=== PATIENT | female | born 2000 | race Caucasian/White ===

== ENCOUNTER 2021-02-12 08:07 | Inpatient (IN) ==
[2021-02-12] MEDS ORDERED: OXYTOCIN 30 UNITS/500 ML BAG IV PRN ×3 (08:32→18:47)
[2021-02-12] MEDS ORDERED: DINOPROSTONE 10 MG INSERT PV ONE (08:32)
--- NOTE | 2021-02-12 09:01 | History & Physical Report ---
Date of Service February 12, 2021 Assessment & Plan (1) Post-term , 40-42 weeks of gestation: Plan: 20-year-old -0-0-1 at 41 weeks and 4 days of gestation presenting today for induction of labor for postdates, Vital signs stable afebrile, heart rate reassuring, GBS negative, Cervix is favorable, Plan to admit, monitor, labs, IV fluids, oxytocin per protocol and AROM when able. Patient agrees with plan and all questions were answered. Admission and Anticipated Discharge Date Admission Date: February 12, 2021 History of Present Illness Primary Care Provider: NO PCP Patient is a 20-year-old -0-0-1 at 41 weeks and 4 days of gestation who presented today for induction of labor due to postdates. She [place] care at [place] state and moved here about a month ago. She has not had any care for the last month or so. She has mild irregular contractions, no leakage of fluid or vaginal bleeding. She reports good movements. Her has been uncomplicated for her. She denies any medical problems other than anemia, she has been on iron. She denies smoking, alcohol or drug use. Per her records UDS screen was positive for marijuana and smoking history was noted. GBS is negative. Allergies Allergy/AdvReac Type Severity Reaction Status Date / Time No Known Allergies Allergy Unverified 06/08/19 20:16 Home Medications Medication Instructions Recorded Confirmed Type ferrous sulfate 325 mg (65 mg 325 mg PO DAILY 02/11/21 02/12/21 History iron) tablet (Iron (ferrous sulfate)) vit no.95-ferrous 1 tab PO DAILY 02/11/21 02/12/21 History fumarate 28 mg-folic acid 800 mcg tablet () acetaminophen 325 mg tablet 650 mg PO QID PRN 02/12/21 02/12/21 History (Tylenol) Patient History Medical History (Updated 02/12/21 @ 08:59 by Andres Wise MD) Anemia only with Migraines no meds No pertinent past medical history (spontaneous vaginal delivery) 2016 in [place] Surgical History H/O wisdom tooth extraction Social History (Updated 02/12/21 @ 08:22 by uPrnima Boone RN) Smoking Status: Never smoker Hx Alcohol Use: No Hx Substance Use: No Preferred Language: [place] Beliefs That Will Affect Care: None marital status: marital status details: Been seperated since May 2020; FOB unknown Current Living Situation: Family Current Living Situation Comment: Live with parents, siblings and daughter current occupational status: unemployed Feels Safe at Home: Yes Safety Concerns: Feels Safe At This Time OB History Full-term in 2017, uncomplicated [employer] History No history of STDs, no history of genital herpes, chlamydia, gonorrhea Physical Exam Constitutional: well developed and well nourished Not in acute distress. Gastrointestinal (Abdomen): Inspection/Auscultation: abdomen normal to inspection and + abdomen distended (Gravid, nontender) Genitourinary: normal external appearance OB Exam Abdomen: + vertex (Confirmed with bedside ultrasound) Manual OB Exam: + cervical dilation 3 cm, + cervical effacement 50% and + station -2 OB Exam Monitor Tracing: + external uterine monitor used (Contractions every 45 minutes) and + category I Results & Data ([facility] [place]) Vital Signs (Past 12 Hours) Vital Signs Temp Pulse Resp BP 02/12/21 08:14 36.9 C 18 02/12/21 08:12 101 H 112/60
[2021-02-12 09:11] LABS: Hematocrit (blood only) 34.8 % (37-47); Hemoglobin 11.4 g/dL (12.0-16.0); Mean Corpuscular Hemoglobin 28.6 pg (25-34); Mean Corpuscular Hgb Conc 32.8 g/dL (32-36); Mean Corpuscular Volume 87.4 fL (80-100); Platelet Count 267 K/uL (130-400); RDW Coefficient of Variation 15.9 % (11.5-14.5); Red Blood Count 3.98 M/uL (4.2-5.4); White Blood Count 13.89 K/uL (4.8-10.8)
[2021-02-12] MEDS: LACTATED RINGER'S 1,000 ML IV PRN ×3 (09:24→15:23)
[2021-02-12 09:29] LABS: Amphetamines+Metham, Urine Neg (Neg); Barbiturates, Urine Neg (Neg); Benzodiazepine, Urine Neg (Neg); Cocaine, Urine Neg (Neg); MDMA (Ecstacy), Urine Neg (Neg); Methadone, Urine Neg (Neg); Opiate, Urine Neg (Neg); Phencyclidine, Urine Neg (Neg)
[2021-02-12] MEDS ORDERED: SODIUM CHLORIDE 0.9% INJ 10 ML VIAL ONE (14:24)
[2021-02-12] MEDS ORDERED: fentaNYL citrate 100 MCG/2 ML VIAL ONE (14:24)
[2021-02-12] MEDS ORDERED: ePHEDrine sulfate 50 MG/ML AMP ONE (14:24)
[2021-02-12] MEDS ORDERED: BUPIVACAINE 0.25% 30 ML VIAL ONE (14:24)
[2021-02-12] MEDS ORDERED: fentaNYL 2MCG/ML ROPIVACAINE 1.25MG/ML 100 ML BAG EPI ONE (14:25)
[2021-02-12] MEDS ORDERED: diphenhydrAMINE 50 MG/ML VIAL IV PRN (14:31)
[2021-02-12] MEDS ORDERED: NALOXONE HCL 0.4 MG/1 ML VIAL/CARP IV PRN (14:31)
[2021-02-12] MEDS ORDERED: ONDANSETRON INJ 2 MG/ML 2 ML VIAL IV PRN (14:31)
[2021-02-12] MEDS ORDERED: fentaNYL 2MCG/ML ROPIVACAINE 1.25MG/ML 100 ML BAG EPI PRN (14:31)
[2021-02-12] MEDS ORDERED: NALBUPHINE HCL INJ 10 MG/ML AMP IV PRN (14:31)
[2021-02-12] MEDS ORDERED: NALOXONE HCL 1 MG in SODIUM CHLORIDE 0.9% 1000ML 1,000 ML IV PRN (14:31)
[2021-02-12] MEDS ORDERED: ePHEDrine sulfate 50 MG/ML AMP IV PRN (14:31)
--- NOTE | 2021-02-12 14:33 | Anesthesiology Consultation ---
Date of Service February 12, 2021 Assessment & Plan (1) Encounter for pre-operative examination: Chart Review Chart Review: Patient NOT seen in Pre Admission Testing and Acceptable Risk for Labor Epidural Consults Requested none History Height/Weight Height: 5 ft 2 in Weight: 92.079 kg Allergies Allergy/AdvReac Type Severity Reaction Status Date / Time No Known Allergies Allergy Unverified 06/08/19 20:16 Medications Home Medications Medication Instructions Recorded Confirmed Last Taken ferrous sulfate 325 mg (65 mg 325 mg PO DAILY 02/11/21 02/12/21 02/11/21 09:00 iron) tablet (Iron (ferrous sulfate)) vit no.95-ferrous 1 tab PO DAILY 02/11/21 02/12/21 02/10/21 21:00 fumarate 28 mg-folic acid 800 mcg tablet () acetaminophen 325 mg tablet 650 mg PO QID PRN 02/12/21 02/12/21 Unknown (Tylenol) Active Medications Generic Name Dose Route Start Last Admin Trade Name Freq PRN Reason Stop Dose Admin Lactated Ringer's 1,000 mls @ 150 mls/hr 02/12/21 08:32 02/12/21 14:22 Lr IV 02/14/21 08:31 999 mls/hr .Q6H40M PRN Administration L&D Protocol Protocol Oxytocin 30 units in 500 mls @ 12 mls/hr 02/12/21 08:54 02/12/21 14:07 Pitocin IV 02/14/21 08:53 0.72 units/hr .Q24H PRN 12 mls/hr Labor Induction/Augmentation Titration Protocol 0.72 UNITS/HR Past Medical History Medical History Anemia only with Migraines no meds No pertinent past medical history (spontaneous vaginal delivery) 2017 in [place] Exercise / Class Metabolic Activity II 4-5 Yardwork/Stairs/Walk up hill Past Surgical History Surgical History H/O wisdom tooth extraction Past Anesthesia History No Hx of Anesthesia Complications and No Family Hx of Anesthesia Complications History of PONV No Hx of PONV and No Hx of Motion Sickness Social History Smoking Status: Never smoker Hx Alcohol Use: No Hx Substance Use: No Physical Exam Vital Signs Last Vital Signs Temp 36.8 C 02/12/21 11:00 Pulse 77 02/12/21 14:43 Resp 18 02/12/21 11:00 BP 109/71 02/12/21 14:23 Pulse Ox 99 02/12/21 14:43 Testing Laboratory Results 02/12/21 08:53
--- NOTE | 2021-02-12 16:14 | Obstetrical Progress Note ---
Date of Service February 12, 2021 Assessment & Plan Admission and Anticipated Discharge Date Admission Date: February 12, 2021 Subjective Patient is reevaluated. She has been on Pitocin since this morning and got p ainful around 2:30 PM and received epidural for pain. She is comfortable now with no complaints. Vital signs stable afebrile, heart rate reassuring, Vaginal exam, cervix is 5 cm dilated, 90% effaced, bulging bag, AROM and, clear fluid was obtained, head is at -2 station but engaged. [place] contractions every 2 to 3 minutes, Pitocin is at 12 mIU/min. Continue to monitor closely, Anticipate . Results & Data ([facility]) Vital Signs (Past 12 Hours) Vital Signs Temp Pulse Resp BP Pulse Ox 02/12/21 16:08 88 103/58 L 97 02/12/21 16:06 86 107/52 L 02/12/21 16:03 90 96 02/12/21 15:58 82 97/53 L 96 02/12/21 15:53 78 96 02/12/21 15:52 77 94/55 L 02/12/21 15:51 75 103/60 02/12/21 15:48 81 97 02/12/21 15:43 81 99/58 L 96 02/12/21 15:38 88 96 02/12/21 15:37 80 94/55 L 93 02/12/21 15:34 78 104/61 02/12/21 15:33 83 99 02/12/21 15:29 83 108/67 02/12/21 15:28 83 98 02/12/21 15:24 83 108/67 02/12/21 15:23 84 97 02/12/21 15:18 90 99 02/12/21 15:16 85 107/66 02/12/21 15:14 77 106/67 02/12/21 15:13 83 98 02/12/21 15:12 82 106/67 02/12/21 15:10 80 104/65 02/12/21 15:08 84 106/67 98 02/12/21 15:06 90 99/62 L 02/12/21 15:04 81 99/63 L 02/12/21 15:03 82 97 02/12/21 15:02 36.6 C 86 18 106/67 02/12/21 15:00 85 111/70 02/12/21 14:58 83 107/67 98 02/12/21 14:56 83 99/66 L 02/12/21 14:54 85 100/66 02/12/21 14:53 94 H 98 02/12/21 14:52 79 95/58 L 02/12/21 14:50 83 95/59 L 02/12/21 14:48 83 99/54 L 100 02/12/21 14:43 77 99 02/12/21 14:38 84 100 02/12/21 14:33 82 98 02/12/21 14:23 87 109/71 02/12/21 13:24 87 107/70 02/12/21 12:24 95 H 106/59 L 02/12/21 11:23 97 H 103/64 02/12/21 11:00 36.8 C 02/12/21 10:19 94 H 119/72 02/12/21 08:14 36.9 C 18 02/12/21 08:12 101 H 112/60
--- NOTE | 2021-02-12 17:26 | Obstetrical Progress Note ---
Date of Service February 12, 2021 Assessment & Plan Admission and Anticipated Discharge Date Admission Date: February 12, 2021 Subjective heart rate had early decelerations with contractions and minimal variab ility, vaginal exam is repeated, cervix is 6 cm dilated, 80% effaced head at 0 station and ROP, sagittal suture is transverse. heart rate had increased variability and acceleration after vaginal exam. Continue to monitor closely at right lateral position for internal rotation of head. Results & Data ([facility]) Vital Signs (Past 12 Hours) Vital Signs Temp Pulse Resp BP Pulse Ox 02/12/21 17:20 88 95/50 L 02/12/21 17:18 89 97 02/12/21 17:13 83 97 02/12/21 17:08 87 96 02/12/21 17:03 84 94/51 L 97 02/12/21 16:58 83 98 02/12/21 16:53 82 97 02/12/21 16:48 85 99/58 L 97 02/12/21 16:47 82 89/51 L 02/12/21 16:44 80 80/45 L 02/12/21 16:43 80 97 02/12/21 16:38 84 93/53 L 97 02/12/21 16:33 81 96 02/12/21 16:32 85 86/51 L 02/12/21 16:29 81 88/53 L 02/12/21 16:28 79 96 02/12/21 16:23 82 97 02/12/21 16:22 82 100/59 L 02/12/21 16:19 85 95/51 L 02/12/21 16:18 83 98 02/12/21 16:15 18 02/12/21 16:14 86 91/55 L 02/12/21 16:13 85 102/62 97 02/12/21 16:08 88 103/58 L 97 02/12/21 16:06 86 107/52 L 02/12/21 16:03 90 96 02/12/21 16:00 20 02/12/21 15:58 82 97/53 L 96 02/12/21 15:53 78 96 02/12/21 15:52 77 94/55 L 02/12/21 15:51 75 103/60 02/12/21 15:48 81 97 02/12/21 15:45 20 02/12/21 15:43 81 99/58 L 96 02/12/21 15:38 88 96 02/12/21 15:37 80 94/55 L 93 02/12/21 15:34 78 104/61 02/12/21 15:33 83 99 02/12/21 15:30 20 02/12/21 15:29 83 108/67 02/12/21 15:28 83 98 02/12/21 15:24 83 108/67 02/12/21 15:23 84 97 02/12/21 15:18 90 99 02/12/21 15:16 85 107/66 02/12/21 15:15 18 02/12/21 15:14 77 106/67 02/12/21 15:13 83 98 02/12/21 15:12 82 106/67 02/12/21 15:10 80 104/65 02/12/21 15:08 84 106/67 98 02/12/21 15:06 90 99/62 L 02/12/21 15:04 81 99/63 L 02/12/21 15:03 82 97 02/12/21 15:02 36.6 C 86 18 106/67 02/12/21 15:00 85 111/70 02/12/21 14:58 83 107/67 98 02/12/21 14:56 83 99/66 L 02/12/21 14:54 85 100/66 02/12/21 14:53 94 H 98 02/12/21 14:52 79 95/58 L 02/12/21 14:50 83 95/59 L 02/12/21 14:48 83 99/54 L 100 02/12/21 14:43 77 99 02/12/21 14:38 84 100 02/12/21 14:33 82 98 02/12/21 14:23 87 109/71 02/12/21 13:24 87 107/70 02/12/21 12:24 95 H 106/59 L 02/12/21 11:23 97 H 103/64 02/12/21 11:00 36.8 C 18 02/12/21 10:19 94 H 119/72 02/12/21 08:14 36.9 C 18 02/12/21 08:12 101 H 112/60
[2021-02-12] MEDS ORDERED: MINERAL OIL 30 ML UDC ONE (18:18)
[2021-02-12] MEDS ORDERED: bisacodyL 10 MG SUPP PR PRN (18:47)
[2021-02-12] MEDS ORDERED: BENZOCAINE 20% AER SPR 82.5 GM CAN EXT PRN (18:47)
[2021-02-12] MEDS ORDERED: SUPERCREAM 0.870% 15 GM JAR EXT PRN (18:47)
[2021-02-12] MEDS ORDERED: ACETAMINOPHEN 325 MG TAB PO PRN (18:47)
[2021-02-12] MEDS ORDERED: HYDROCORTISONE ACETATE 25 MG SUPP PR PRN (18:47)
[2021-02-12] MEDS ORDERED: miSOPROStoL 200 MCG TAB PR ONE (18:47)
--- NOTE | 2021-02-12 19:37 | Delivery Summary ---
DATE OF DELIVERY: 02/12/2021 DETAILS OF DELIVERY: The patient was found to be fully dilated and desired to push. She pushed through 3 contractions and delivered the head without difficulty. Shoulders were delivered with minimal traction. Baby was handed off to the mother where mouth and nose were suctioned. Cord was clamped x2 and cut at 1 minute delay. Cord blood was obtained. Baby was vigorously crying and moving at that point. Vagina and perineum were checked for lacerations that were intact. No lacerations were found. Placenta was found to be in the vagina, delivered spontaneously as intact and complete. Uterus was explored and found to be empty. Lower segment was cleared of all clots and debris. Fundus was firm. EBL was 200 mL. Mom and baby tolerated the procedure well. lap and instrument count was correct x2. Baby was a viable male , Apgars 9/9, weight is 3743 gr. No complications happened and I was present during whole procedure. Job ID: [id number] [facility]
--- NOTE | 2021-02-12 19:50 | Anesthesia Procedure Note ---
Date of Service February 12, 2021 Anesthesia Post Epidural Note Vital Signs Vital Signs: Temp Pulse Resp BP Pulse Ox 37.1 C 87 22 105/54 L 97 02/12/21 17:00 02/12/21 19:33 02/12/21 18:30 02/12/21 19:49 02/12/21 18:48 Pain Intensity Bilateral Abdomen: Pain Intensity: 8 Notes Mental Status: alert / awake / arousable and participated in evaluation Patient Amnestic to Procedure: No Nausea / Vomiting: adequately controlled Pain: adequately controlled Airway Patency, RR, SpO2: stable & adequate BP & HR: stable & adequate Hydration State: stable & adequate Neuraxial Anesthesia: was administered and sensory block is resolving Anesthetic Complications: no major complications apparent and Pt Satisfied with anesthetic care Epidural: Removed without complications and With tip intact
[2021-02-12] MEDS: IBUPROFEN 600 MG TAB PO PRN (20:31)
[2021-02-12] MEDS: DOCUSATE SODIUM 100 MG CAP PO SCH (21:28)
[2021-02-13 07:05] LABS: Hematocrit (blood only) 31.4 % (37-47); Hemoglobin 10.3 g/dL (12.0-16.0); Mean Corpuscular Hemoglobin 28.7 pg (25-34); Mean Corpuscular Hgb Conc 32.8 g/dL (32-36); Mean Corpuscular Volume 87.5 fL (80-100); Platelet Count 231 K/uL (130-400); RDW Coefficient of Variation 15.6 % (11.5-14.5); RDW Standard Deviation 50.4 fL (36.4-46.3); Red Blood Count 3.59 M/uL (4.2-5.4); White Blood Count 15.36 K/uL (4.8-10.8)
[2021-02-13] MEDS: PRENATAL VITAMIN 1 TAB PO SCH (08:03)
[2021-02-13] MEDS: FERROUS SULFATE 325 MG TAB PO SCH (08:03)
[2021-02-13] MEDS: IBUPROFEN 600 MG TAB PO PRN ×3 (08:03→21:58)
--- NOTE | 2021-02-13 08:14 | Obstetrical Progress Note ---
Date of Service February 13, 2021 Subjective Ambulation: ambulating normally Voiding: no voiding problems Passing Gas:: Yes Diet Tolerance:: regular diet Feeding Type:: breast feeding Current Pain Level(1-10): 0 doing well Physical Exam Constitutional WD/WN, vitals as above comfortable Abdomen soft and non-tender no edema neg James's tent d/c in AM Results & Data ([facility]) Vital Signs (Past 12 Hours) Vital Signs Temp Pulse Pulse Resp BP BP 02/13/21 03:25 36.9 C 18 106/75 02/12/21 22:45 36.9 C 93 H 18 104/73 02/12/21 21:48 100 H 105/64 02/12/21 21:33 88 103/59 L 02/12/21 21:18 93 H 98/54 L 02/12/21 21:03 37.1 C 97 H 18 100/57 L 02/12/21 20:48 96 H 103/60 02/12/21 20:33 101 H 113/69 02/12/21 20:18 85 106/62 Laboratory Results Laboratory Results - last 72 hr 02/12/21 02/12/21 02/12/21 08:53 08:56 09:14 WBC 13.89 H RBC 3.98 L Hgb 11.4 L Hct 34.8 L MCV 87.4 MCH 28.6 MCHC 32.8 RDW Std Deviation 51.0 H RDW Coeff of Abiodun 15.9 H Plt Count 267 MPV 9.0 Urine Opiates Screen Neg Ur Methadone, Qual Neg Urine Barbiturates Neg Ur Phencyclidine (PCP) Neg U Amphetamin/Meth Scrn Neg MDMA (Ecstasy) Screen Neg U Benzodiazepines Scrn Neg Ur Cocaine Metabolite Neg U Marijuana (THC) Screen Neg COVID-19 Eval Order Covid19 [facility] SARS-CoV-2, RNA, NAAT 02/12/21 02/13/21 09:14 06:35 WBC 15.36 H RBC 3.59 L Hgb 10.3 L Hct 31.4 L MCV 87.5 MCH 28.7 MCHC 32.8 RDW Std Deviation 50.4 H RDW Coeff of Abiodun 15.6 H Plt Count 231 MPV 9.0 Urine Opiates Screen Ur Methadone, Qual Urine Barbiturates Ur Phencyclidine (PCP) U Amphetamin/Meth Scrn MDMA (Ecstasy) Screen U Benzodiazepines Scrn Ur Cocaine Metabolite U Marijuana (THC) Screen COVID-19 Eval Order SARS-CoV-2, RNA, NAAT NEGATIVE
[2021-02-13] MEDS ORDERED: MEASLES, MUMPS & RUBELLA VIRUS VIAL SQ ONE (09:00)
[2021-02-13] MEDS ORDERED: DIPHTHERIA/TETANUS/PERTUSSIS 0.5 ML SYR/VIAL IM ONE (09:00)
[2021-02-13] MEDS ORDERED: bisacodyL 5 MG TABEC PO SCH (20:00)
[2021-02-13] MEDS: DOCUSATE SODIUM 100 MG CAP PO SCH (20:16)
[2021-02-14 06:54] LABS: Hematocrit (blood only) 31.4 % (37-47)
--- NOTE | 2021-02-14 07:14 | Obstetrical Progress Note ---
Date of Service February 14, 2021 Assessment & Plan Admission and Anticipated Discharge Date Admission Date: February 12, 2021 Subjective Patient is seen and examined. She feels well, no complaints. Ambulating without dizziness Voiding without difficulty Tolerating regular diet with out N&V Bleeding is minimal No fever/ chills/ CP/ SOB/ N&V/ Leg pain Breast feeding without problems Vital Signs Temp Pulse Resp BP Pulse Ox 02/13/21 23:02 36.8 C 82 16 104/74 95 02/13/21 19:01 36.8 C 80 16 105/73 95 02/13/21 15:40 36.8 C 69 18 113/79 02/13/21 11:35 36.7 C 81 18 101/72 02/13/21 07:40 36.7 C 78 18 99/65 L Lab Results 02/12/21 02/12/21 02/12/21 Range/Units 08:53 08:56 09:14 WBC 13.89 H (4.8-10.8) K/uL RBC 3.98 L (4.2-5.4) M/uL Hgb 11.4 L (12.0-16.0) g/dL Hct 34.8 L (37-47) % MCV 87.4 (80-100) fL MCH 28.6 (25-34) pg MCHC 32.8 (32-36) g/dL RDW Std Deviation 51.0 H (36.4-46.3) fL RDW Coeff of Abiodun 15.9 H (11.5-14.5) % Plt Count 267 (130-400) K/uL MPV 9.0 (7.4-10.4) fL Urine Opiates Screen Neg (Neg) Ur Methadone, Qual Neg (Neg) Urine Barbiturates Neg (Neg) Ur Phencyclidine (PCP) Neg (Neg) U Amphetamin/Meth Scrn Neg (Neg) MDMA (Ecstasy) Screen Neg (Neg) U Benzodiazepines Scrn Neg (Neg) Ur Cocaine Metabolite Neg (Neg) U Marijuana (THC) Screen Neg (Neg) COVID-19 Eval [facility] SARS-CoV-2, RNA, NAAT (NEGATIVE) 02/12/21 02/13/21 02/14/21 Range/Units 09:14 06:35 06:19 WBC 15.36 H (4.8-10.8) K/uL RBC 3.59 L (4.2-5.4) M/uL Hgb 10.3 L 10.0 L (12.0-16.0) g/dL Hct 31.4 L 31.4 L (37-47) % MCV 87.5 (80-100) fL MCH 28.7 (25-34) pg MCHC 32.8 (32-36) g/dL RDW Std Deviation 50.4 H (36.4-46.3) fL RDW Coeff of Abiodun 15.6 H (11.5-14.5) % Plt Count 231 (130-400) K/uL MPV 9.0 (7.4-10.4) fL Urine Opiates Screen (Neg) Ur Methadone, Qual (Neg) Urine Barbiturates (Neg) Ur Phencyclidine (PCP) (Neg) U Amphetamin/Meth Scrn (Neg) MDMA (Ecstasy) Screen (Neg) U Benzodiazepines Scrn (Neg) Ur Cocaine Metabolite (Neg) U Marijuana (THC) Screen (Neg) COVID-19 Eval Order SARS-CoV-2, RNA, NAAT NEGATIVE (NEGATIVE) PE: General: Alert, orientedx3, NAD Abd: soft, NT, fundus firm, below Umbilicus Perineum intact, Lochia rubra minimal Ext; NT, no edema AP: 20 yo s/p , ppd# 2 VSS Afebrile doing well Continue routine care All questions were answered Discussed when to call D/C home , f/u in office Results & Data ([facility]) Vital Signs (Past 12 Hours) Vital Signs Temp Pulse Resp BP Pulse Ox 02/13/21 23:02 36.8 C 82 16 104/74 95
[2021-02-14] MEDS: FERROUS SULFATE 325 MG TAB PO SCH (07:41)
[2021-02-14] MEDS: DOCUSATE SODIUM 100 MG CAP PO SCH (07:41)
[2021-02-14] MEDS: PRENATAL VITAMIN 1 TAB PO SCH (07:41)
[2021-02-14] MEDS: IBUPROFEN 600 MG TAB PO PRN ×2 (07:41→13:12)
== END 2021-02-14 14:45 | disposition home or self-care (01) | DRG 807 ==
LOC: 4S1 08:07 → 4S2 22:39